=== PATIENT | female | born 1975 | race Caucasian/White ===

== ENCOUNTER 2023-03-17 18:56 | Emergency (ER) | payer OTHER, MEDICARE, SELFPAY ==
[2023-03-17] VITALS (14 sets, daily range): BP systolic 144–167; BP diastolic 70–93; PULSE 96–125; RESP 15–32; TEMP 36.9; O2SAT 93–100; BMI 49.3
--- NOTE | 2023-03-17 19:29 | DI.RAD.S_ITS ---
PROCEDURE: XR CHEST 1V INDICATIONS: chest pain TECHNIQUE: One view of the chest was acquired. COMPARISON: None. FINDINGS: Surgical changes and devices: None. Lungs and pleura: Lungs are difficult to accurately assess due to reduced inspiratory volume. No pleural effusions or pneumothorax. Mediastinum: Mediastinal contours appear normal. Heart size is normal. Bones and chest wall: No suspicious bony lesions. Overlying soft tissues appear unremarkable. IMPRESSION: Relatively prominently reduced inspiratory volume, no definite acute disease when this is taken into account. Dictated by: Waldemar Bond M.D. on 03/17/2023 at 20:18 Approved by: Waldemar Bond M.D. on 03/17/2023 at 20:19
--- NOTE | 2023-03-17 19:32 | PC.NURSE ---
pt's Jose arrived and collateral information, can be reached @ [phone]. did not come back to see pt, due to pt reporting feeling unsafe w/ him tonight. Jose reports pt got an rx for phentermine weight loss med on Sunday in [place] and has taken approx. 25 pills in the last 4 days and is also abusing her other meds including requip for restless leg. reports he does not believe she is attempting to harm herself but he is worred about her. reports this happened last year and she ended up with a tube in her throat to breathe. reports her pain doctor just quit so she is out of her lortab and morphine for chronic pain so she is using this as a substitue. reports pt is paranoid, unplugging devices from their hotel, and reporting she feels unsafe like people are watching her. info passed to supercharger repair supervisor and dr. leiva. pt moved to room with monitoring.
--- NOTE | 2023-03-17 19:37 | PC.NURSE ---
Spoke w/ Poison Control: Discussed case and potential medications of over dose. states watch for parkinsonion like symptoms, cardiac ectopy or marcelino cardia, WELDING PRODUCTION SUPERVISOR effects, hallucinations. Hyperthermia, seizure. Supportive management: if acute dystonic reaction suggests typical / supportive treatment. Unknown duration of effects due to unknown timing of ingestion but minimum of six hours.
--- NOTE | 2023-03-17 19:48 | PC.NURSE ---
Patient reported to this nurse that 3 days ago took approximately 20 pills of phentermine and 20-25 ibuprofen under the context that the meds weren't working and that she overtook them intentionally but not to hurt myself. States that abdelrahman was fighting with over taking her meds, per patient he was concerned about her over taking her meds and she is concerned he is going to hurt her. Also mentioned an incident where she was concerned the water she was drinking might be hurting me and that I drink a lot of water but they tell me I am dehydrated. Patient with spastic movements of body and face, licking lips, has dry cracked lips and circumoral red rash. Patient reports that prior to the overdose of medication she had been feeling unwell with shortness of breath, body aches, and fatigue. Charge nurse and provider made aware of conversation and assessment of patient.
[2023-03-17 19:56] LABS: INR 1.2 (0.9-1.3); Prothrombin Time 13.4 SECONDS (9.4-12.5)
[2023-03-17 19:58] LABS: PTT Partial Thromboplastin Tim 24 SECONDS (25.1-36.5)
[2023-03-17 20:06] LABS: Acetaminophen < 10 ug/mL (10-30); Alanine Aminotransferase 35 IU/L (<35); Albumin 4.2 g/dL (3.5-5.0); Albumin Globulin Ratio 1.2 (1.0-2.8); Alkaline Phosphatase 105 U/L (38-126); Aspartate Aminotransferase 46 IU/L (14-36); BUN Creatinine Ratio 10.5 (6-22); Bilirubin Total 0.8 mg/dL (0.2-1.3); Blood Urea Nitrogen 16 mg/dL (7-17); Calcium 8.5 mg/dL (8.4-10.2); Carbon Dioxide 16 mmol/L (22-32); Chloride 99 mmol/L (98-107); Creatine Kinase 495 U/L (30-135); Estimated Glomerular Filt Rate 42 mL/min (>60); Ethanol (ETOH) < 10 mg/dL; Globulin 3.4 g/dL (1.7-4.1); Glucose 95 mg/dL (70-100); HEMOLYSIS < 15 (0-50); Lipase 51 U/L (23-300); Magnesium 1.7 mg/dL (1.6-2.3); Potassium 3.2 mmol/L (3.4-5.1); Salicylate < 1.0 mg/dL (<20); Sodium 131 mmol/L (137-145); Total Protein 7.6 g/dL (6.3-8.2)
[2023-03-17 20:14] LABS: Hematocrit 25.6 % (36-46); Hemoglobin 7.8 g/dL (12.0-16.0); Mean Corpuscular HGB Conc 30.6 % (30-36); Mean Corpuscular Hemoglobin 19.4 PG (26-34); Mean Corpuscular Volume 63.2 fL (80-100); Platelet Count 219 X10^3/uL (150-400); Red Blood Cell Count 4.05 X10^6/uL (4.0-5.2); Red Cell Distribution Width 19.2 % (11.6-14.8); White Blood Cell Count 6.3 X10^3/uL (4.5-11.0)
[2023-03-17 20:15] LABS: Add Manual Diff / Slide Review YES
[2023-03-17 20:20] LABS: Free T4, Direct Thyroxine 1.74 ng/dL (0.78-2.19)
[2023-03-17 20:22] LABS: Troponin I < 0.012 ng/mL (0.01-0.034)
[2023-03-17 20:36] LABS: Neutrophils Absolute Manual 4662 /uL (3000-5900); Total Cells Counted 100
[2023-03-17 20:38] LABS: Microcytosis 1+
[2023-03-17] MEDS: SODIUM CHLORIDE 0.9% 1,000 ML 1000 ML IV ×2 (20:38→22:15)
[2023-03-17] MEDS: KETOROLAC 30 MG/ML VIAL 15 MG IV (20:38)
[2023-03-17 20:39] LABS: Thyroid Stimulating Hormone 2.95 uIU/mL (0.47-4.68)
--- NOTE | 2023-03-17 20:47 | ED.OVERDOSE ---
HPI - Overdose General Chief Complaint: Toxicology Problem Stated Complaint: Anxiety Time Seen by Provider: 03/17/23 19:21 Source: patient and EMS Mode of arrival: EMS History of Present Illness HPI Narrative: Patient is a 48-year-old female here from [place] presenting today with overdose of medications. She takes Victoza, phentermine, Requip, ibuprofen. Apparently she has chronic pain she was previously on Lortab and morphine but is out. She reports that she has taken at least 25 tablets of phentermine over the last 3 days. She maybe took 30 tablets of ibuprofen possibly over last 3 days as well. She denies taking any extra Requip. Overall very difficult to tell exactly what she is taken what she is. She is noted to have some canker sores on her tongue and lip, she is some tardive dyskinesia symptoms. She is hallucinating. She reports that it was not intentional overdose she was just trying to get rid of some pain issues. She reports that she does not feel safe with her only he says they fight all the time but denies any physical or verbal abuse. Related Data Allergies Allergy/AdvReac Type Severity Reaction Status Date / Time No Known Drug Allergies Allergy Verified 03/17/23 20:47 Patient History Medical History (Updated 03/18/23 @ 04:07 by Teresa Seo DO) Anemia Exam Initial Vital Signs Initial Vital Signs: Vital Signs Temperature 98.4 F 03/17/23 18:59 Pulse Rate 105 H 03/17/23 18:59 Respiratory Rate 20 03/17/23 18:59 Blood Pressure 144/93 H 03/17/23 18:59 Pulse Oximetry 98 03/17/23 18:59 Oxygen Delivery Method Room Air 03/17/23 18:59 GENERAL: Patient 48-year-old female morbid obesity BMI 49 HEENT: Head atraumatic,EOMI, pupils reactive, face symmetric, [moist] mucous membranes CARDIOVASCULAR: Regular rate and rhythm without murmurs, rubs or gallops. RESPIRATORY: Breath sounds equal bilaterally, no wheezes rales or rhonchi. ABDOMEN: Soft, nontender. Normoactive bowel sounds all 4 quadrants. No guarding or rebound. EXTREMITIES: Normal range of motion, no clubbing or edema. Neurovascularly intact NEUROLOGICAL: Alert and oriented x4. Having some mouth SKIN: Warm, dry, no laceration, no petechiae, no rashes or lesions. Course Orders Ordered: ED Orders 03/17/23 19:29 XR chest 1V Stat EKG-12 Lead Stat 03/17/23 19:40 Acetaminophen Stat Complete Blood Count AUTO DIFF Stat Comprehensive Metabolic Panel Stat Ethanol (ETOH) Stat Free T4, Direct Thyroxine Stat Lactate (Lactic Acid) Stat Lipase Stat Magnesium Stat PTT Partial Thromboplastin Johnson Stat Prothrombin Time INR Stat Salicylate Stat Thyroid Stimulating Hormone Stat Troponin & CK Cardiac Panel Stat 03/17/23 21:19 Urine Drug Screen, Rapid Stat Discontinued Medications Diphenhydramine HCl (Diphenhydramine 50 Mg/Ml Vial) 25 mg IV NOW ONE Stop: 03/17/23 21:13 Last Admin: 03/17/23 21:16 Dose: 25 mg Documented By: TIFFANY Hydromorphone HCl (Hydromorphone 1 Mg Inj) 1 mg IV NOW ONE Stop: 03/18/23 00:34 Last Admin: 03/18/23 00:45 Dose: Not Given Documented By: ANASTACIA Hydromorphone HCl (Hydromorphone 1 Mg Inj) 1 mg IM NOW ONE Stop: 03/18/23 01:19 Last Admin: 03/18/23 01:30 Dose: 1 mg Documented By: ANASTACIA Sodium Chloride (Normal Saline 0.9%) 1,000 mls @ 1,000 mls/hr IV BOLUS ONE Stop: 03/17/23 21:25 Last Infusion: 03/17/23 21:38 Dose: Infused Documented By: Admin: 03/17/23 20:38 Dose: 1,000 mls/hr Documented By: ANASTACIA Sodium Chloride (Normal Saline 0.9%) 1,000 mls @ 1,000 mls/hr IV BOLUS ONE Stop: 03/17/23 23:08 Last Infusion: 03/17/23 22:50 Dose: 0 mls/hr Documented By: Admin: 03/17/23 22:15 Dose: 1,000 mls/hr Documented By: ANASTACIA Ketorolac Tromethamine (Ketorolac 30 Mg/Ml Vial) 15 mg IV NOW ONE Stop: 03/17/23 20:27 Last Admin: 03/17/23 20:38 Dose: 15 mg Documented By: ANASTACIA Lorazepam (Lorazepam 2 Mg/Ml Inj) 1 mg IV NOW ONE Stop: 03/17/23 21:08 Last Admin: 03/17/23 21:15 Dose: Not Given Documented By: ROCKY Lorazepam (Lorazepam 2 Mg/Ml Inj) 0.5 mg IV NOW ONE Stop: 03/17/23 21:13 Last Admin: 03/17/23 21:16 Dose: 0.5 mg Documented By: TIFFANY Lorazepam (Lorazepam 2 Mg/Ml Inj) 0.5 mg IV NOW ONE Stop: 03/17/23 21:30 Last Admin: 03/17/23 21:39 Dose: 0.5 mg Documented By: ANASTACIA Lorazepam (Lorazepam 2 Mg/Ml Inj) 1 mg IV NOW ONE Stop: 03/17/23 22:10 Last Admin: 03/17/23 22:15 Dose: 1 mg Documented By: ANASTACIA Morphine Sulfate (Morphine 2 Mg/Ml Inj) 2 mg IV NOW ONE Stop: 03/17/23 22:12 Last Admin: 03/17/23 22:22 Dose: 2 mg Documented By: ANASTACIA Potassium Chloride (Potassium Chloride 20 Meq Tab) 40 meq PO NOW ONE Stop: 03/18/23 00:34 Last Admin: 03/18/23 01:22 Dose: 40 meq Documented By: ANASTACIA Vital Signs Vital signs: Vital Signs - 8 hr 03/17/23 20:30 03/17/23 20:30 03/17/23 20:45 Temperature Pulse Rate 101 H 125 H Respiratory Rate 20 Blood Pressure 167/81 H Pulse Oximetry 98 98 Oxygen Delivery Method 03/17/23 21:00 03/17/23 21:00 03/17/23 21:18 Temperature Pulse Rate 98 H 97 H Respiratory Rate 27 H 18 Blood Pressure 165/83 H Pulse Oximetry 100 Oxygen Delivery Method 03/17/23 21:30 03/17/23 21:45 03/17/23 22:00 Temperature Pulse Rate 100 H 113 H 107 H Respiratory Rate Blood Pressure Pulse Oximetry 93 97 Oxygen Delivery Method 03/18/23 01:50 03/18/23 04:08 Temperature 98.3 F Pulse Rate 102 H 99 H Respiratory Rate 26 H 22 Blood Pressure 147/80 H 154/70 H Pulse Oximetry 97 98 Oxygen Delivery Method Room Air Room Air MDM - Overdose Lab Data 03/17/23 19:40 03/17/23 19:40 Labs: Lab Results 03/17/23 03/17/23 Range/Units 19:40 21:19 WBC 6.3 (4.5-11.0) X10^3/uL RBC 4.05 (4.0-5.2) X10^6/uL Hgb 7.8 L (12.0-16.0) g/dL Hct 25.6 L (36-46) % MCV 63.2 L (80-100) fL MCH 19.4 L (26-34) PG MCHC 30.6 (30-36) % RDW 19.2 H (11.6-14.8) % Plt Count 219 (150-400) X10^3/uL Neut % (Auto) Not Reportable Lymph % (Auto) Not Reportable [place] % (Auto) Not Reportable Eos % (Auto) Not Reportable Baso % (Auto) Not Reportable Lymph # (Auto) Not Reportable [place] # (Auto) Not Reportable Baso # (Auto) Not Reportable Total Counted 100 Seg Neutrophils % 74.0 H (38-70) % Lymphocytes % (Manual) 17.0 L (25-45) % Atypical Lymphs % 1.0 H ( - 0) % Monocytes % (Manual) 7.0 (2-11) % Basophils % (Manual) 1.0 (0-1) % Neutrophils # (Manual) 4662 (0545-3228) /uL RBC Morphology See below Microcytosis 1+ H PT 13.4 H (9.4-12.5) SECONDS INR 1.2 (0.9-1.3) APTT 24 L (25.1-36.5) SECONDS Sodium 131 L (137-145) mmol/L Potassium 3.2 L (3.4-5.1) mmol/L Chloride 99 (98-107) mmol/L Carbon Dioxide 16 L (22-32) mmol/L BUN 16 (7-17) mg/dL Creatinine 1.53 H (0.52-1.04) mg/dL Estimated GFR 42 L (>60) mL/min BUN/Creatinine Ratio 10.5 (6-22) Glucose 95 (70-100) mg/dL Lactate 0.8 (0.7-2.1) mmol/L Calcium 8.5 (8.4-10.2) mg/dL Magnesium 1.7 (1.6-2.3) mg/dL Total Bilirubin 0.8 (0.2-1.3) mg/dL AST 46 H (14-36) IU/L ALT 35 H (<35) IU/L Alkaline Phosphatase 105 (38-126) U/L Total Creatine Kinase 495 H (30-135) U/L Troponin I < 0.012 (0.01-0.034) ng/mL Total Protein 7.6 (6.3-8.2) g/dL Albumin 4.2 (3.5-5.0) g/dL Globulin 3.4 (1.7-4.1) g/dL Albumin/Globulin Ratio 1.2 (1.0-2.8) Lipase 51 (23-300) U/L TSH 2.95 (0.47-4.68) uIU/mL Free T4 1.74 (0.78-2.19) ng/dL Salicylates < 1.0 (<20) mg/dL U Opiates 300ng/mL cut Negative (Negative) Ur Oxycodone Screen Negative (Negative) Urine Methadone Screen Negative (Negative) Acetaminophen < 10 (10-30) ug/mL Ur Barbiturates Screen Negative (Negative) U Tricyclic Antidepress Negative (Negative) Ur Phencyclidine Scrn Negative (Negative) Ur Amphetamines Screen Positive H (Negative) U Methamphetamines Scrn Negative (Negative) Ur MDMA Scrn (Ecstasy) Negative (Negative) U Benzodiazepines Scrn Negative (Negative) Urine Cocaine Screen Negative (Negative) U Marijuana (THC) Screen Negative (Negative) Urine pH Not Reportable Urine Specific [place] Not Reportable Ethyl Alcohol < 10 ( - 10) mg/dL Ur Creatinine Not Reportable Point of Care Testing Test Results Negative Urine Dip Bedside Urine Glucose Negative Bedside Urine Bilirubin - Negative Bedside Urine Ketone - Negative Urine Specific [place] 1.005 Bedside Urine Occult Blood - Negative Bedside Urine pH 5.5 Bedside Urine Protein - Negative Bedside Urine Urobilinogen - Negative Bedside Urine Nitrite - Negative Bedside Urine Leukocytes - Negative Esterase ECG Data Interpretation: Normal sinus rhythm rate 86 WI interval 158 QRS [address] changes MDM Narrative Medical decision making narrative: Patient 48-year-old female presenting today with overdose of multiple medications. Unclear exactly how much she took a when but it has been over the last few days. He has had he is tardive dyskinesia like signs and symptoms. Poison control called. Recommend supportive care recommended Ativan Benadryl as needed. Patient was given both Ativan and Benadryl however her extra portable effects got significantly worse. She was given more Ativan she really did not have any sort of relief that she is on gave an Ativan and morphine. She then ripped out her IV. Patient getting very restless pacing the emergency department. She required a sitter. She slowly got better but did actually have like some pain in her legs she got some morphine and Dilaudid eventually. At 1 point she did put a bag over had briefly she has no into suicide she did not know what she was doing. 0345 patient asking longer she needs to be here. She does not remember putting a bag on her head she seems back to normal or tardive dyskinesia signs and symptoms have stopped. She is not tachycardic bradycardic. At this time she seems back to her baseline. Blood work has been reviewed she is quite anemic hemoglobin 7.8 hematocrit 25.6, MCV 63, potassium 3.2, bicarb 16, creatinine 1.5, lactate 0.8, magnesium 1.7, AST 46, ALT 35, CPK 495, Tylenol negative, salicylate negative, alcohol negative, drug screen positive for amphetamine Patient has been an emergency department for almost 10 hours. She no longer is having tardive dyskinesia like symptoms. She seems back to her baseline mental status she feels ready able to go home she started awaiting here. Her is here to pick her up. She continually denied suicidal homicidal ideations. Naloxone at Discharge Meets criteria for naloxone at discharge?: No Discharge Plan Departure Patient Disposition: Home Clinical Impression: Accidental overdose Instructions: DI for Drug Overdose in Adults Activity Restrictions/Additional Instructions: *You have been diagnosed with accidental drug overdose *What to do: At this time please take medications only as directed. I recommend that you are has been give them to you *Continue to take medications as directed *Follow up with your primary care provider in 2-3 days or call [phone] *Return to ER if you should have any new, worsening or concerning symptoms Referrals: Agnes,MD Terrance [Primary Care Provider] - Stand Alone Forms: Patient Portal/API
[2023-03-17 20:58] LABS: Lactate (Lactic Acid) 0.8 mmol/L (0.7-2.1)
--- NOTE | 2023-03-17 21:12 | PC.NURSE ---
Pt. remains moderately restless, anxious, non-cooperative & agitated. Repeated pulling monitoring equipment & gown off & making attempts @ exiting stretcher. IV Ativan ordered/ administered.
[2023-03-17] MEDS: diphenhydrAMINE 50 MG/ML VIAL 25 MG IV (21:16)
[2023-03-17] MEDS: LORazepam 2 MG/ML INJ 0.5 MG IV ×2 (21:16→21:39)
[2023-03-17 21:37] LABS: Urine Amphetamines Positive (Negative); Urine Barbiturates Negative (Negative); Urine Benzodiazepines Negative (Negative); Urine Cocaine Negative (Negative); Urine MDMA Negative (Negative); Urine Methadone Negative (Negative); Urine Methamphetamines Negative (Negative); Urine Opiates Negative (Negative); Urine Oxycodone Negative (Negative); Urine Phencyclidine Negative (Negative); Urine THC Negative (Negative); Urine Tricyclic Antidepressant Negative (Negative)
--- NOTE | 2023-03-17 22:00 | PC.NURSE ---
PRODUCT MGR note: Took patient for a walk because patient complained that she needed to get up and move. Did two laps around the department in a fairly spry pace. Patient is standby assist with walking. Patient was teary and weepy as she walked. Patient went to the bathroom.
[2023-03-17] MEDS: LORazepam 2 MG/ML INJ 1 MG IV (22:15)
[2023-03-17] MEDS: MORPHINE 2 MG/ML INJ IV (22:22)
--- NOTE | 2023-03-17 22:36 | PC.NURSE ---
this SENIOR WRITER noticed pt taking off gown walked in to help pt; pt continues to pace in the room
--- NOTE | 2023-03-17 22:54 | PC.NURSE ---
this SECURITIES VAULT SUPERVISOR was coming back to the [facility] desk when I noticed pt walking down with blood all over her gown, her face, and hands; pt ripped out her IV; ARMANDO rojas assisted me with pt to go back into the room; pt agitated, pacing and stated I thought it was spring i thought it was may informed ARMANDO Womack pt is still pacing in room and has to be redirected when standing in the halls
--- NOTE | 2023-03-17 23:51 | PC.NURSE ---
pt took bio hazard bag out the bin and tried to stick her head inside of it, informed charge pt now needing sitter
--- NOTE | 2023-03-17 23:59 | PC.NURSE ---
SCHOOL PHOTOGRAPH EDITOR note: Patient is frequently walking outside of the room. Patient has been attempting to get into the cabinets and sorting through patient supplies. Staff used zip ties to close cabinets. When this staff member got back to the nurse's station, she noticed patient was standing at the nurse's station going through the lab supplies on the counter. Told patient to go back to room. Patient repeatedly has said I need to get up and moving explained to patient that she needed to lay down and it's late at night. Patient wants to go home, doesn't understand why we won't let her just walk around. When patient was found going through the trash can staff asked what are you doing? Patient replied I don't know what I'm doing. I don't know what's going on. Patient wants me to take the medicine out of my blood. Explained to patient we can't do that. Patient is standing over my shoulder currently as I'm writing this. Is this all about me? Told her yes, I had to document why I zip tied the cabinets. Asked patient to go back to bed and go rest. Patient in bed kicking her legs up.
--- NOTE | 2023-03-18 01:02 | PC.NURSE ---
CAR DESIGNER note: Patient asked for me to clean her bed it's filthy. Can't you see it? As I was changing linen patient asked me can I get some ice water? told her when I had a minute I would get it for her. As soon as I finished making up her bed, patient asked didn't you get me water yet? Patient isn't following directions well, patient expecting staff to help her with basic needs, while bad mouthing other hospitals and staff. I know I shouldn't have come to the hospital. You guys don't give me anything. It's always a wait. I told her I would get her water when I had a moment. Making note of any manipulative behaviors.
[2023-03-18] MEDS: POTASSIUM CHLORIDE 20 MEQ TAB 40 MEQ PO (01:22)
[2023-03-18] MEDS: HYDROMORPHONE 1 MG INJ IM (01:30)
[2023-03-18 01:50] VITALS: BP 147/80; PULSE 102; RESP 26; O2SAT 97
--- NOTE | 2023-03-18 03:45 | PC.NURSE ---
At 0245 patient was walking around room. Patient began to open the curtain to room 7 in the emergency department, opening the sliding door. Patient had eyes open, and was looking into the room. I was sitting at room side for patient. I asked what she was doing hey we don't look into other's rooms. Patient looked at me, eyes open wide and said I don't know what I'm doing, I'm sleep walking. I said I watched you with your eyes open look into the room. We don't look into other's rooms. Patient continued to pace around room. At 0340, while walking by room, I noticed patient was in bed, but wearing a short t-shirt, no underwear sleeping on her side, curtain open. I asked hey, are you wearing underpants? Patient looked down. No. Explained we need to keep underpants on because you have your curtain open. Patient asked why. I got her a pair of disposable underpants. Patient said she'd rather wear her pajama pants. Patient walked out of the room, and she had opened an adult ambu bag. Then as Dr. Seo was in the room she opened a child's ambu bag. I had told her we needed her not to go into the cabinets and baskets in the room because other people needed to use those supplies. She expressed understanding at that time.
[2023-03-18 04:08] VITALS: BP 154/70; PULSE 99; RESP 22; TEMP 36.8; O2SAT 98
--- NOTE | 2023-03-18 14:52 | PC.NURSE ---
[place] [facility] Called to follow up. Reviewed discharge status.
== END 2023-03-18 04:24 | disposition home or self-care (01) ==
PROVIDERS: Emergency Provider Emergency Medicine
DX: R44.3 Hallucinations, unspecified (principal); R07.9 Chest pain, unspecified; T50.911A Poisoning by multiple unspecified drugs, medicaments and biological substances, accidental (unintentional), initial encounter
CPT/HCPCS: 36415; 71045; 80053; 80305; 80320; 80329; 81003; 81025; 82550; 83605; 83690; 83735; 84439; 84443; 84484; 85007; 85025; 85610; 85730; 93005; 96372; 96374; 96375; 96376; 99284; 99285; G0480; J1170; J1200; J1885; J2060; J2270

== ENCOUNTER → 2024-03-05 10:40 | Outpatient (CLI) | payer OTHER, MEDICARE, SELFPAY ==
[2024-03-05 12:03] LABS: Add Manual Diff / Slide Review NO; Basophils Absolute Auto 100 /uL (0-100); Basophils Percent Auto 0.9 % (0-2); Eosinophils Absolute Auto 100 /uL (0-450); Eosinophils Percent Auto 1.6 % (2-4); Hematocrit 43.5 % (36-46); Hemoglobin 14.4 g/dL (12.0-16.0); Lymphocytes Absolute Auto 1400 /uL (1100-4500); Lymphocytes Percent Auto 22.6 % (25-40); Mean Corpuscular HGB Conc 33.1 % (30-36); Mean Corpuscular Hemoglobin 28.3 PG (26-34); Mean Corpuscular Volume 85.3 fL (80-100); Monocytes Absolute Auto 400 /uL (0-900); Monocytes Percent Auto 6.6 % (3-14); Neutrophils Absolute Auto 4100 /uL (1500-7000); Neutrophils Percent Auto 68.3 % (50-75); Platelet Count 276 X10^3/uL (150-400); Red Cell Distribution Width 16.5 % (11.6-14.8)
[2024-03-05 12:17] LABS: HEMOLYSIS < 15 (0-50); Iron 76 ug/dL (37-170)
[2024-03-05 12:24] LABS: Alanine Aminotransferase 78 IU/L (<35); Albumin 4.5 g/dL (3.5-5.0); Albumin Globulin Ratio 1.7 (1.0-2.8); Alkaline Phosphatase 290 U/L (38-126); Aspartate Aminotransferase 50 IU/L (14-36); BUN Creatinine Ratio 14.5 (6-22); Bilirubin Total 0.6 mg/dL (0.2-1.3); Blood Urea Nitrogen 11 mg/dL (7-17); Calcium 9.2 mg/dL (8.4-10.2); Carbon Dioxide 23 mmol/L (22-32); Chloride 104 mmol/L (98-107); Estimated Glomerular Filt Rate > 60 mL/min (>60); Globulin 2.7 g/dL (1.7-4.1); Glucose 90 mg/dL (70-100); HEMOLYSIS < 15 (0-50); Potassium 4.2 mmol/L (3.4-5.1); Sodium 136 mmol/L (137-145); Total Protein 7.2 g/dL (6.3-8.2)
[2024-03-05 12:31] LABS: Percent Iron Saturation 19 % (15-50); Total Iron Binding Capacity 410 ug/dL (265-497); Transferrin 384 mg/dL (206-381)
[2024-03-05 12:56] LABS: Ferritin 10 ng/mL (6-137)
== END ==
DX: D50.9 Iron deficiency anemia, unspecified (principal); I10 Essential (primary) hypertension
CPT/HCPCS: 36415; 80053; 82728; 83540; 83550; 85025

== ENCOUNTER → 2024-06-26 09:50 | Outpatient (CLI) | payer OTHER, MEDICARE, SELFPAY ==
[2024-06-26 10:32] LABS: Add Manual Diff / Slide Review NO; Basophils Absolute Auto 100 /uL (0-100); Basophils Percent Auto 1.4 % (0-2); Eosinophils Absolute Auto 300 /uL (0-450); Eosinophils Percent Auto 5.6 % (2-4); Hematocrit 33.4 % (36-46); Hemoglobin 11.1 g/dL (12.0-16.0); Lymphocytes Absolute Auto 1200 /uL (1100-4500); Lymphocytes Percent Auto 23.6 % (25-40); Mean Corpuscular HGB Conc 33.1 % (30-36); Mean Corpuscular Hemoglobin 27.2 PG (26-34); Mean Corpuscular Volume 82.3 fL (80-100); Monocytes Absolute Auto 500 /uL (0-900); Monocytes Percent Auto 9.2 % (3-14); Neutrophils Absolute Auto 3000 /uL (1500-7000); Neutrophils Percent Auto 60.2 % (50-75); Platelet Count 214 X10^3/uL (150-400); Red Blood Cell Count 4.06 X10^6/uL (4.0-5.2)
[2024-06-26 10:59] LABS: D Dimer 1203 ng/ml (<500)
[2024-06-26 11:12] LABS: Alanine Aminotransferase 38 IU/L (<35); Albumin 3.7 g/dL (3.5-5.0); Albumin Globulin Ratio 1.4 (1.0-2.8); Alkaline Phosphatase 97 U/L (38-126); Aspartate Aminotransferase 45 IU/L (14-36); Bilirubin Total 0.5 mg/dL (0.2-1.3); Blood Urea Nitrogen 6 mg/dL (7-17); Calcium 8.3 mg/dL (8.4-10.2); Carbon Dioxide 23 mmol/L (22-32); Chloride 109 mmol/L (98-107); Estimated Glomerular Filt Rate > 60 mL/min (>60); Globulin 2.6 g/dL (1.7-4.1); Glucose 85 mg/dL (70-99); HEMOLYSIS < 15 (0-50); Sodium 138 mmol/L (137-145); Total Protein 6.3 g/dL (6.3-8.2)
[2024-06-26 11:23] LABS: NT-proBNP (BNP-Adult 18+) 697 pg/mL (<125)
== END ==
PROVIDERS: Referring Provider Physician Assistant; Visit Provider Physician Assistant
DX: R60.0 Localized edema (principal); G89.29 Other chronic pain; F11.90 Opioid use, unspecified, uncomplicated
CPT/HCPCS: 36415; 80053; 83880; 85025; 85379

== ENCOUNTER → 2024-06-27 10:02 | Outpatient (CLI) | payer OTHER, MEDICARE, SELFPAY ==
--- NOTE | 2024-06-27 10:05 | DI.US.S_ITS ---
PROCEDURE: US PERIPH VENOUS LOW EXTREM BI INDICATIONS: b/l edema with elevated d-dimer TECHNIQUE: Real-time imaging, as well as color and pulse Doppler interrogation, were performed of the deep veins of both legs from the inguinal ligament to the popliteal fossa, with documentation of the visualized calf veins. COMPARISON: None. FINDINGS: Right: The common femoral, femoral, popliteal, and the visualized calf veins are normally compressible, and free of intraluminal thrombus. Color and pulse Doppler demonstrate normal phasic intravascular flow. There is normal augmentation response to distal compression maneuver. Left: The common femoral, femoral, popliteal, and the visualized calf veins are normally compressible, and free of intraluminal thrombus. Color and pulse Doppler demonstrate normal phasic intravascular flow. There is normal augmentation response to distal compression maneuver. Bilateral ramos cyst measuring 6.7 x 3.3 x 2 point 4 cm on the right and 3.3 x 2.3 x 1.4 cm on the left. IMPRESSION: No findings of deep venous thrombosis in either lower extremity. Bilateral Ramos cyst. Dictated by: Maylin Lazaro M.D. on 06/27/2024 at 12:18 Approved by: Maylin Lzaaro M.D. on 06/27/2024 at 12:18
== END ==
PROVIDERS: Referring Provider Physician Assistant; Visit Provider Physician Assistant
DX: M71.21 Synovial cyst of popliteal space [Baker], right knee (principal); M71.22 Synovial cyst of popliteal space [Baker], left knee; R79.89 Other specified abnormal findings of blood chemistry
CPT/HCPCS: 93970

== ENCOUNTER 2024-06-28 01:19 | Emergency (ER) | payer OTHER, MEDICARE, SELFPAY ==
[2024-06-28] VITALS (8 sets, daily range): BP systolic 149–187; BP diastolic 70–93; PULSE 80–102; RESP 12–18; TEMP 36.6; O2SAT 92–97; BMI 47.4
--- NOTE | 2024-06-28 01:32 | EKG_ITS ---
[facility] [address], [place] [address] Test Date: 2024-06-28 Pat Name: Katie Falk Department: [facility] Room: Gender: Female Pole Setter: : 1975 Requested By: Order Number: [id number] Reading MD: Kris Murry MD Measurements Intervals [place] Rate: 98 P: 55 CA: 158 QRS: 20 QRSD: 84 T: 43 QT: 366 QTc: 467 Interpretive Statements Normal sinus rhythm Electronically Signed On 06-29-2024 8:40:37 PDT by Kris Murry MD
--- NOTE | 2024-06-28 01:37 | DI.CT.S_ITS ---
PROCEDURE: CT ANGIO CHEST PE PROTOCOL INDICATIONS: chest pain, hx PE TECHNIQUE: After the administration of intravenous contrast, 2 mm thick sections acquired from the pulmonary apices to the posterior costophrenic angles. 3-dimensional maximum intensity projection (MIP) coronal and sagittal reformats were then acquired through the thorax. For radiation dose reduction, the following was used: automated exposure control, adjustment of mA and/or kV according to patient size. COMPARISON: [facility], , US PERIPH VENOUS LOW EXTREM BI, 06/27/2024, 11:31. [facility], CR, XR CHEST 2 VIEWS, 04/01/2024, 10:20. FINDINGS: Image quality: Limited by bolus timing. There is streak artifact seen through the level of the shoulders. Pulmonary arteries: The bolus of the contrast injection is suboptimal. The main pulmonary artery measures 135 Hounsfield units. Pulmonary artery densities are greater than 250 Hounsfield units are considered to be ideal for evaluation of pulmonary embolism. However, no large or central pulmonary emboli are seen on these images. No pulmonary emboli are seen more distally, although sensitivity for detection of such is limited on this study. Lower Neck: No enlarged lymph nodes. Thyroid: No thyroid nodules which require sonographic follow up, per consensus guidelines. Axillae: No enlarged lymph nodes. Chest Wall: Unremarkable. Bones: There is postoperative change of the left proximal humerus. Age-appropriate bony degenerative changes are seen. Accentuated thoracic kyphosis is seen. Lungs and Pleura: Patchy infiltrates can be seen within the left upper lobe and the left lower lobe. The right lung is relatively clear. No pneumothorax or pleural effusions are seen. Heart: Heart size is normal. No pericardial effusion. Thoracic Vessels: No aortic aneurysm. Mediastinum and Sydni: No enlarged lymph nodes. Esophagus: No wall thickening. There is a small to moderate hiatal hernia. Upper Abdomen: Bariatric surgery can be seen. The visualized portions of the upper abdominal structures are otherwise unremarkable for imaging technique. IMPRESSION: No large or central pulmonary embolism. Patchy infiltrates seen within the left lung. Additional findings: Small to moderate hiatal hernia Bariatric surgery Note: No significant discrepancy from the preliminary report. Dictated by: Maicol Adkins M.D. on 06/28/2024 at 8:57 Approved by: Maicol Adkins M.D. on 06/28/2024 at 9:01
[2024-06-28 02:35] LABS: Add Manual Diff / Slide Review NO; Basophils Absolute Auto 100 /uL (0-100); Basophils Percent Auto 1.5 % (0-2); Eosinophils Absolute Auto 300 /uL (0-450); Eosinophils Percent Auto 5.6 % (2-4); Hematocrit 30.2 % (36-46); Hemoglobin 10.2 g/dL (12.0-16.0); Lymphocytes Absolute Auto 1200 /uL (1100-4500); Lymphocytes Percent Auto 25.3 % (25-40); Mean Corpuscular HGB Conc 33.9 % (30-36); Mean Corpuscular Hemoglobin 27.4 PG (26-34); Mean Corpuscular Volume 80.7 fL (80-100); Monocytes Absolute Auto 700 /uL (0-900); Monocytes Percent Auto 15.2 % (3-14); Neutrophils Absolute Auto 2500 /uL (1500-7000); Neutrophils Percent Auto 52.4 % (50-75); Platelet Count 199 X10^3/uL (150-400); Red Blood Cell Count 3.74 X10^6/uL (4.0-5.2); Red Cell Distribution Width 14.1 % (11.6-14.8); White Blood Cell Count 4.7 X10^3/uL (4.5-11.0)
[2024-06-28 02:40] LABS: Alanine Aminotransferase 30 IU/L (<35); Albumin 3.6 g/dL (3.5-5.0); Albumin Globulin Ratio 1.4 (1.0-2.8); Alkaline Phosphatase 84 U/L (38-126); Aspartate Aminotransferase 34 IU/L (14-36); BUN Creatinine Ratio 16.9 (6-22); Bilirubin Total 0.4 mg/dL (0.2-1.3); Blood Urea Nitrogen 10 mg/dL (7-17); Calcium 8.4 mg/dL (8.4-10.2); Carbon Dioxide 26 mmol/L (22-32); Chloride 105 mmol/L (98-107); Estimated Glomerular Filt Rate > 60 mL/min (>60); Globulin 2.6 g/dL (1.7-4.1); Glucose 94 mg/dL (70-99); HEMOLYSIS < 15 (0-50); Potassium 3.6 mmol/L (3.4-5.1); Sodium 136 mmol/L (137-145); Total Protein 6.2 g/dL (6.3-8.2)
--- NOTE | 2024-06-28 02:48 | ED.GENADULT ---
HPI - General Adult General Chief complaint: Shortness of Breath/Dyspnea Stated complaint: Elevated D-Dimer, SOB, Chest/back pain Time Seen by Provider: 06/28/24 01:37 Source: patient Mode of arrival: Ambulatory History of Present Illness HPI narrative: 49-year-old female with right lateral chest discomfort, history of prior pulmonary embolism on blood thinners for 1 year but no longer taking chronic anticoagulation, shortness of breath since yesterday, had blood testing as an outpatient clinic and reportedly had D-dimer that was positive and BNP that was elevated, had ultrasound Doppler study of the legs that was negative, referred here for possible PE evaluation. Denies recent cough. Feels right-sided flank area right lower lateral chest discomfort. No fevers or chills. No painful urination or frequency of urination. No loose stools. No injury trauma new activities. Related Data Home Medications Medication Instructions Recorded Confirmed bupropion HCl 300 mg 24 hr tablet, 300 mg PO QAM 06/26/24 06/26/24 extended release hydrocodone 7.5 mg-acetaminophen 1 tab PO Q8H PRN 06/26/24 06/26/24 325 mg tablet morphine 15 mg tablet,extended 15 mg PO Q12H 06/26/24 06/26/24 release ropinirole 1 mg tablet 2 mg PO ONCE PM 06/26/24 06/26/24 venlafaxine 150 mg 150 mg PO DAILY 06/26/24 06/26/24 capsule,extended release 24 hr Previous Rx's Medication Instructions Recorded hydrochlorothiazide 12.5 mg tablet 12.5 mg PO QAM #30 tabs 06/26/24 Allergies Allergy/AdvReac Type Severity Reaction Status Date / Time No Known Drug Allergies Allergy Verified 06/26/24 09:30 Patient History Medical History (Updated 06/28/24 @ 04:06 by Thiago Palmer MD) Anemia Social History (System 04/02/23 @ 07:50 by Meghann Shields) Smoking Status: Never smoker Smoking Status: Never smoker Exam Narrative Exam Narrative: GENERAL: Well-developed patient, in mild distress. HEAD: Atraumatic. Normocephalic. EYES: Pupils equal round and reactive. Extraocular motions intact. No scleral icterus. No injection or drainage. ENT: Nose without bleeding, purulent drainage. Throat without erythema, tonsillar hypertrophy or exudate. Airway patent. NECK: Trachea midline. Non tender CARDIOVASCULAR: Regular rate and rhythm without murmurs, gallops, or rubs. RESPIRATORY: Clear to auscultation. Breath sounds equal bilaterally. No wheezes, rales, or rhonchi. GASTROINTESTINAL: Abdomen soft, non-tender, nondistended. EXTREMITIES: No edema or joint tenderness. BACK: Nontender without deformity or crepitance. No flank tenderness. NEURO: AOx3. Motor functions grossly nonfocal SKIN: No rash or erythema of visible areas Initial Vital Signs Initial Vital Signs: Vital Signs Temperature 97.8 F 06/28/24 01:32 Pulse Rate 102 H 06/28/24 01:32 Respiratory Rate 16 06/28/24 01:32 Blood Pressure 187/93 H 06/28/24 01:32 Pulse Oximetry 96 06/28/24 01:32 Oxygen Delivery Method Room Air 06/28/24 01:32 Course Orders Ordered: ED Orders 06/28/24 01:26 EKG-12 Lead Stat 06/28/24 01:37 CT angio chest PE protocol Stat 06/28/24 02:15 BNP [NT-proBNP (BNP-Adult 18+)] Stat CBC Auto Diff [Complete Blood Count AUTO DIFF] Stat CMP [Comprehensive Metabolic Panel] Stat HCG Quantitative /Beta subunit Stat Prothrombin Time INR Stat Vital Signs Vital signs: Vital Signs - 8 hr 06/28/24 01:32 06/28/24 02:08 06/28/24 02:09 Temperature 97.8 F Pulse Rate 102 H Respiratory Rate 16 Blood Pressure 187/93 H 149/72 H Pulse Oximetry 96 95 Oxygen Delivery Method Room Air 06/28/24 02:09 06/28/24 02:30 06/28/24 02:30 Temperature Pulse Rate 87 84 Respiratory Rate 12 Blood Pressure 153/70 H Pulse Oximetry 94 92 Oxygen Delivery Method 06/28/24 03:00 06/28/24 03:17 06/28/24 03:17 Temperature Pulse Rate 80 89 Respiratory Rate 13 18 Blood Pressure 158/72 H Pulse Oximetry 97 97 Oxygen Delivery Method 06/28/24 03:30 06/28/24 03:30 06/28/24 04:00 Temperature Pulse Rate 86 88 Respiratory Rate 14 14 Blood Pressure 157/71 H Pulse Oximetry 94 94 Oxygen Delivery Method 06/28/24 04:00 Temperature Pulse Rate Respiratory Rate Blood Pressure 161/73 H Pulse Oximetry Oxygen Delivery Method Medical Decision Making Lab Data Lab results reviewed: Yes I reviewed the patient's lab results. 06/28/24 02:15 06/28/24 02:15 Labs: Lab Results 06/28/24 Range/Units 02:15 WBC 4.7 (4.5-11.0) X10^3/uL RBC 3.74 L (4.0-5.2) X10^6/uL Hgb 10.2 L (12.0-16.0) g/dL Hct 30.2 L (36-46) % MCV 80.7 (80-100) fL MCH 27.4 (26-34) PG MCHC 33.9 (30-36) % RDW 14.1 (11.6-14.8) % Plt Count 199 (150-400) X10^3/uL Neut % (Auto) 52.4 (50-75) % Lymph % (Auto) 25.3 (25-40) % Dickenson % (Auto) 15.2 H (3-14) % Eos % (Auto) 5.6 H (2-4) % Baso % (Auto) 1.5 (0-2) % Neut # (Auto) 2500 (9589-1235) /uL Lymph # (Auto) 1200 (2007-7233) /uL Dickenson # (Auto) 700 (0-900) /uL Eos # (Auto) 300 (0-450) /uL Baso # (Auto) 100 (0-100) /uL PT 12.1 (9.4-12.5) SECONDS INR 1.1 (0.9-1.3) Sodium 136 L (137-145) mmol/L Potassium 3.6 (3.4-5.1) mmol/L Chloride 105 (98-107) mmol/L Carbon Dioxide 26 (22-32) mmol/L BUN 10 (7-17) mg/dL Creatinine 0.59 (0.52-1.04) mg/dL Estimated GFR > 60 (>60) mL/min BUN/Creatinine Ratio 16.9 (6-22) Glucose 94 (70-99) mg/dL Calcium 8.4 (8.4-10.2) mg/dL Total Bilirubin 0.4 (0.2-1.3) mg/dL AST 34 (14-36) IU/L ALT 30 (<35) IU/L Alkaline Phosphatase 84 (38-126) U/L NT-Pro-B Natriuret Pep 405 H (<125) pg/mL Total Protein 6.2 L (6.3-8.2) g/dL Albumin 3.6 (3.5-5.0) g/dL Globulin 2.6 (1.7-4.1) g/dL Albumin/Globulin Ratio 1.4 (1.0-2.8) HCG, Quant < 2.39 mIU/mL ECG Data Attestation: I personally reviewed and interpreted this ECG as follows: Interpretation: Normal sinus rhythm with rate of 98, no obvious ST segment elevation or depression changes. AL 158, QRS 84, QTC 467. MDM Narrative Medical decision making narrative: Right lateral chest discomfort, no trauma, afebrile, sirs screen negative, reportedly had elevated D-dimer, history of previous pulmonary embolus no longer on anticoagulation, referred after ultrasound outpatient showed no clots to either leg. Renal function adequate. CT angiogram chest study ordered. CT angio chest study. Impressions: ?suboptimal timing of the contrast bolus to evaluate for pulmonary embolism. No central embolism aortic dissection or aneurysm.. See tele radiology report Copy of report CT angio chest study given to patient, suboptimal, she does not want to repeat that test. No acute changes otherwise noted for her right-sided chest discomfort. She feels better and wants to go home. Further workup as an outpatient for now. Return precautions discussed. Discharge Plan Departure Patient Disposition: Home Clinical Impression: Chest pain Activity Restrictions/Additional Instructions: Right lateral chest discomfort of unclear cause. History of remote blood clots to the lungs, no longer on chronic anticoagulation therapy. Recent leg pain swelling but on both side. Ultrasound Doppler study recently done apparently showed no venous clots to either leg. Outpatient D-dimer was elevated and outpatient BNP test was elevated. CT angiogram of the chest was performed here, suboptimal timing of the contrast, however no large central clot was identified, also no acute chest findings to explain your right-sided chest discomfort. EKG and troponin blood testing not suggestive of heart attack at this time. Unclear cause of your discomfort. Further workup as an outpatient for now. Consider taking aspirin daily for now pending further evaluation as an outpatient. Return earlier to this/nearest emergency department for any change worsening symptoms or any concerns prior. Prescriptions: No Action morphine 15 mg tablet extended release 15 mg PO Q12H hydrocodone-acetaminophen 7.5-325 mg tablet 1 tab PO Q8H PRN venlafaxine 150 mg capsule,extended release 24hr 150 mg PO DAILY ropinirole 1 mg tablet 2 mg PO ONCE PM bupropion HCl 300 mg tablet extended release 24 hr 300 mg PO QAM hydrochlorothiazide 12.5 mg tablet 12.5 mg PO QAM Qty: 30 0RF Referrals: Miscellaneous,Doctor, MD [Primary Care Provider] - Stand Alone Forms: Patient Portal/API/Survey
[2024-06-28 02:53] LABS: INR 1.1 (0.9-1.3); Prothrombin Time 12.1 SECONDS (9.4-12.5)
[2024-06-28 02:56] LABS: HCG Quantitative /Beta subunit < 2.39 mIU/mL
[2024-06-28 03:24] LABS: NT-proBNP (BNP-Adult 18+) 405 pg/mL (<125)
== END 2024-06-28 04:25 | disposition home or self-care (01) ==
PROVIDERS: Emergency Provider Emergency Medicine
DX: R07.9 Chest pain, unspecified (principal); Z79.01 Long term (current) use of anticoagulants; Z86.711 Personal history of pulmonary embolism
CPT/HCPCS: 36415; 71275; 80053; 83880; 84702; 85025; 85610; 93005; 93010; 99281; 99284; Q9967